=== PATIENT | female | born 1980 | race Caucasian/White ===

== ENCOUNTER → 2016-10-29 | Day surgery (SDC) | payer BC ==
[~2016-10-29] VITALS: Ht 172.7 cm; Wt 68.0 kg
[2016-10-29] VITALS (11 sets, daily range): BP systolic 101–132; BP diastolic 54–67
[~2016-10-29] MED LIST: DiphenhydrAMINE 50mg/ml Inj IVP PRN; HYDROmorphone 1mg/ml Carpuject SUBQ PRN; Hydromorphone 0.5mg/0.5ml inj IVP PRN; Ketorolac 30mg Inj IV PRN; Ketorolac 30mg Inj ONE; LEVOTHYROXINE125 MCG ORAL; LR 1000ml 1,000 ML IVLG SCH; LR 1000ml ONE; Meperidine 25mg/ml Inj IV PRN; Metoclopramide 10mg/2ml Inj IVP PRN; Midazolam 2mg/2ml Inj IVP PRN; Midazolam 2mg/2ml Inj ONE; Morphine Sulfate 10mg/ml Inj ONE; NS Irrig 1000ml IRRIG ONE; Norco 5mg/325mg tab ORAL PRN; Propofol 10mg/ml 20ml IV ONE; ProvayBlue 5mg/ml 10ml amp INJ ONE; Ropivacaine 5mg/ml Vial 20ml INJ ONE; Sterile Water Irrig 1000ml IRRIG ONE; Succinylcholine 20mg/ml 10ml vial ONE; Zemuron 50mg/5ml Inj IV ONE; cefOXitin 1gm Inj ONE; fentaNYL 100 mcg/2 mL IV ONE
--- NOTE | 2016-10-29 04:28 | History and Physical Report ---
DATE OF ADMISSION: 10/29/2016 REASON FOR PROCEDURE: Bilateral ovarian masses. HISTORY OF PRESENT ILLNESS: The patient is a 36-year-old G0 with increasing dysmenorrhea over the last year as well as occasional pain with intercourse. The patient also complaints of lower abdominal pain, but left quadrant pain worse than right. The patient had multiple imaging procedures consistent with bilateral hypoechoic adnexal masses consistent with endometriomas or other complex masses. The patient was first examined by me on 09/24/2016. She is planning to get soon, but has not attempted yet. PAST MEDICAL HISTORY: Consistent for LEEP and polyp removal. FAMILY HISTORY: Consistent with hypertension in mother. SOCIAL HISTORY: She does not smoke. She drinks alcohol socially. She is originally from [facility]. She recently moved to [facility] to live with her boyfriend. REVIEW OF SYSTEMS: Negative except for dysmenorrhea, dyspareunia and pressure-like right lower quadrant abdominal pain. PHYSICAL EXAMINATION: GENERAL: Young female, in no acute distress. VITAL SIGNS: Height 68 inches, weight 155 pounds. Her blood pressure 126/80 and respiratory rate 18. HEAD AND NECK: Pupils equal and reactive to light. LUNGS: Clear to auscultation bilaterally. CARDIAC: Regular rate and rhythm. ABDOMEN: Soft, nondistended, nontender. PELVIC: Bartholin urethra skenes within normal limits. Cervix within normal limits. Bimanual exam consistent with adnexal masses, right approximately 6 cm in diameter and posterior to uterus, left approximately 4 cm in diameter. Rectovaginal no nodularity. EXTREMITIES: No cords, no cyanosis or no edema. LABORATORY AND DIAGNOSTIC DATA: Labs on 10/22/2016 consistent with hemoglobin of 4.9 and platelets of 296,000. The patient's blood type is A negative, hCG is negative. Her creatinine is 0.71. PT is 11.7 and PTT 32.8. ASSESSMENT: A 36-year-old with complex adnexal masses. Plan: CO2 laser pelviscopy, bilateral cystecomies, possible ablation of endometriosis, hysteroscopy Fay Driscoll M.D. DR: Gallo JOB#: [id number] CC: CHRISTINA
--- NOTE | 2016-10-29 07:45 | Pre-Procedure Note/Attestation ---
Pre-Procedure Note/Attestation Complete Prior to Procedure Planned Procedure: bilateral Procedure Narrative: CO2 laser perlviscopy, bilateral cystectomies, hysteroscopy, dilation and curettage Indications for Procedure Pre-Operative Diagnosis: Bilateral ovarian neoplasms, dysmenorhea, dysparunia Attestation I attest that I discussed the nature of the procedure; its benefits; risks and complications; and alternatives (and the risks and benefits of such alternatives ), prior to the procedure, with the patient (or the patient's legal medical representative). I attest that, if there was a reasonable possibility of needing a blood transfusion, the patient (or the patient's legal medical representative) was given the [place] Department [employer] standardized written summary, pursuant to the Rip [place] Blood Safety Act ([place] Health and Safety Code # 1645, as amended). I attest that I re-evaluated the patient just prior to the surgery and that there has been no change in the patient's H&P, except as documented below: NANCY PENALOZA Oct 29, 2016 07:45
--- NOTE | 2016-10-29 08:31 | Anethesia Preoperative Eval ---
Anesthesia Pre-op PMH/ROS General Date of Evaluation: Oct 29, 2016 Time of Evaluation: 07:40 Anesthesiologist: Mook ASA Score: ASA 2 Mallampati Score Class I : Soft palate, uvula, fauces, pillars visible Class II: Soft palate, uvula, fauces visible Class III: Soft palate, base of uvula visible Class IV: Only hard plate visible Mallampati Classification: Class II Surgeon: Maureen Diagnosis: Pelvic pain Surgical Procedure: D&C HYsteroscopy Laparoscopic laser treatment Anesthesia History: none Family History: no anesthesia problems Allergies: Coded Allergies: ASPIRIN (Verified Allergy, Unknown, unknown, 10/28/16) "was told by her parents" PENICILLINS (Verified Allergy, Unknown, unknown, 10/28/16) SULFAMETHOXAZOLE (Verified Allergy, Unknown, unknown, 10/28/16) TRIMETHOPRIM (Verified Allergy, Unknown, 10/28/16) Medications: see eMAR Past Medical History Cardiovascular: Denies: CAD, HTN, ND, arrhythmia, other, valve dz Pulmonary: Denies: COPD, [place], asthma, other Gastrointestinal/Genitourinary: Denies: CRI, ESRD, GERD, other Neurologic/Psychiatric: Denies: CVA, TIA, dementia, depression/anxiety, other Endocrine: Reports: hypothyroidism - s/p thyroidectomy, Denies: DM, other, steroids HEENT: Denies: SOBOBA (L), SOBOBA (R), cataract (L), cataract (R), glaucoma, other Hematology/Immune: Denies: DVT, anemia, bleeding disorder, other Musculoskeletal/Integumentary: Denies: DDD, DJD, OA, RA, edema, other PMH Narrative: as above PSxH Narrative: Thyroidectomy Anesthesia Pre-op Phys. Exam Physician Exam Last Vital Signs Date Time Temp Pulse Resp B/P Pulse Ox O2 Delivery O2 Flow Rate FiO2 10/29/16 07:07 98.8 77 20 132/67 100 Room Air Constitutional: NAD Neurologic: CN 2-12 intact Cardiovascular: RRR, no M/R/G Respiratory: CTA Gastrointestinal: S/NT/ND Airway Exam Mallampati Score: Class II MO: full Neck: flexible ROM: full Teeth: intact Dentures: no lower, no upper Anesthesia Pre-op A/P Labs see chart Urine Test Test 10/29/16 06:55 Urine HCG, Qualitative Negative Risk Assessment & Plan Assessment: ASA 2 Plan: GA with ETT PONV prevention Status Change Before Surgery: No Pre-Antibiotics Drug: Cefoxitin 1gr. Given Within 1 Hr of Incision: Yes Time Given: 08:05 SAMARIA INGRAM M.D. Oct 29, 2016 08:31
--- NOTE | 2016-10-29 10:26 | Immediate Post-Op Evaluation ---
Immediate Post-Op Evalulation Immediate Post-Op Evalulation Procedure: Laparoscopic removal of bilateral ovarian cysts Date of Evaluation: Oct 29, 2016 Time of Evaluation: 10:25 IV Fluids: 1200 Blood Products: none Estimated Blood Loss: 50 Urinary Output: 400 Blood Pressure Systolic: 106 Blood Pressure Diastolic: 54 Pulse Rate: 62 Respiratory Rate: 20 O2 Sat by Pulse Oximetry: 99 Temperature (Fahrenheit): 98.2 Pain Score (1-10): 2 Nausea: No Vomiting: No Complications none Patient Status: reacts, patent, extubated, none Hydration Status: adequate SAMARIA INGRAM M.D. Oct 29, 2016 10:26
--- NOTE | 2016-10-29 11:03 | 48 Hour Post Anesthesia Eval ---
Post Anesthesia Evaluation Procedure: Laparoscopic removal of bilateral ovarian cysts Date of Evaluation: Oct 29, 2016 Time of Evaluation: 11:02 Blood Pressure Systolic: 112 0: 54 Pulse Rate: 62 Respiratory Rate: 20 Temperature (Fahrenheit): 97.6 O2 Sat by Pulse Oximetry: 99 Airway: patent Nausea: No Vomiting: No Pain Intensity: 2 Hydration Status: adequate Cardiopulmonary Status: stable Mental Status/LOC: patient returned to baseline Follow-up Care/Observations: n/a Post-Anesthesia Complications: none Follow-up care needed: ready to discharge SAMARIA INGRAM M.D. Oct 29, 2016 11:03
--- NOTE | 2016-10-29 17:08 | Operative Note - Dictated ---
DATE OF OPERATION: 10/29/2016 PREOPERATIVE DIAGNOSES: Bilateral ovarian cyst, dysmenorrhea, and dyspareunia. POSTOPERATIVE DIAGNOSES: Bilateral ovarian cyst, dysmenorrhea, dyspareunia, and bilateral endometrioma. PROCEDURES: CO2 laser pelviscopy, bilateral ovarian cystectomies, lysis of adhesions, ablation of endometriosis, and hysteroscopy. SURGEON: Fay Driscoll M.D. LEATHER POLISHER: Hunter Reddy M.D. ANESTHESIOLOGIST: Nahum Delvalle M.D. ESTIMATED BLOOD LOSS: 100 mL. ANESTHESIA: General endotracheal. COMPLICATIONS: None. SPECIMENS: Bilateral ovarian cysts consistent with endometrioma. PROCEDURE IN DETAIL: After ensuring informed consent, the patient was taken to the operating room, where general anesthesia was induced. The patient was sterilely prepped and draped and placed in dorsal lithotomy position with legs up in Josue stirrups. Weighted speculum was placed in the vagina. Cervix was dilated to 8 Hegar dilator. Hysteroscope was placed inside the uterine cavity. Uterine cavity was distended with normal saline. Uterine cavity appeared to be normal and there were bilateral tubal patency with bilateral tubal ostia seen. Next, HUMI-type uterine manipulator was placed inside the uterine cavity. Next, attention was turned to the abdomen where a small incision was made inside the umbilicus. Veress needle was placed inside the peritoneal cavity and peritoneal cavity was distended with CO2 gas. Next, a 10 mm trocar was placed inside the umbilicus and intraperitoneal placement was confirmed with the camera. Pelvis was explored. There were bilateral masses, the right mass was larger than the left and approximately 6 to 7 cm in diameter. The left adnexal ovarian mass was approximately 5 cm in diameter. Next, two more 5 mm trocars were placed, one suprapubically and one left lateral under direct visualization. Next using laser, the right ovarian mass was incised. A cyst identified, hydrodissected, then a small window in the cyst was made, and contents of the cyst was aspirated, cyst capsule was grasped, and both sharply and bluntly dissected off of underlying ovary. Next, that was removed through the intraumbilical 10 mm port. Next, excellent hemostasis was assured with bipolar cautery and attention was turned to the left side, where ovary was incised, cyst was grasped with a grasper, and the capsule of the cyst was both bluntly and sharply dissected off of the underlying right ovary. Then, excellent hemostasis was assured with bipolar cautery. The pelvis was copiously irrigated. There were some adhesions between the right ovary and pelvic sidewall, which were removed with laser and hemostasis was assured with bipolar cautery. Next, there was a focus of endometriosis in the posterior cul-de-sac, which was ablated with laser under direct visualization. At the end of the procedure, excellent hemostasis was assured. The pelvis was copiously irrigated. The irrigant was suctioned off. All trocars were removed under direct visualization. The fascia in the umbilical port was closed with #0 Vicryl. All the other ports were closed with 4-0 Monocryl at the end of the procedure. All instrument and lap counts were correct x2. The patient was taken to the recovery area and extubated in stable condition. Both HUMI and Drew catheters were removed at the end of the procedure in the operating room. Fay Driscoll M.D. DR: HECTOR JOB#: [id number] CC: CHRISTINA
--- NOTE | 2016-11-05 07:46 | Brief Operative Note ---
Immediate Post Operative Note Operative Note Pre-op Diagnosis: Bilateral ovarian neoplasms, dysmenorhea, dysparunia Procedure: CO2 laser pelviscopy, bilateral ovarian cystectomies, ablation of endometirosis , hysteroscopy Post-op Diagnosis: same and endometriomas Surgeon: Yamila Glue Maker: Maureen Anesthesiologist: Mook Anesthesia: general Specimen: yes Complications: none Condition: stable Drains: none NANCY PENALOZA Nov 05, 2016 07:46
== END | disposition home or self-care (01) ==
LOC: SUR 06:34
DX: N80.1 Endometriosis of ovary (principal); N73.6 Female pelvic peritoneal adhesions (postinfective); N94.6 Dysmenorrhea, unspecified; N94.10 Unspecified dyspareunia; E03.9 Hypothyroidism, unspecified; Z88.6 Allergy status to analgesic agent; Z88.3 Allergy status to other anti-infective agents; Z88.0 Allergy status to penicillin; Z88.2 Allergy status to sulfonamides; Z88.8 Allergy status to other drugs, medicaments and biological substances
CPT/HCPCS: 58555; 58662; 81025; J0330; J0690; J0694; J1885; J2250; J2270; J2405; J2704; J2795; J3010; J7120; 94003; 94150; J2180